=== PATIENT | female | born 1960 | race Caucasian/White ===

== ENCOUNTER 2022-06-12 08:42 | Day surgery (SDC) | payer BC ==
[~2022-06-12] VITALS: Ht 172.7 cm; Wt 113.1 kg
[~2022-06-12 08:42] MED LIST: FERROUS SULFAT324 M1 PO; FOLIC ACID0.4 MG PO; METOPROLOL25 MG PO; PORTIA-28 30 MC1 TAB PO; VESICARE5 MG PO; VITAMIN C BUFF500 MG PO
[2022-06-12] MEDS ORDERED: NORVASC 10MG10 MG PO (09:19)
[2022-06-12] MEDS ORDERED: JANUVIA 100MG100 MG PO (09:19)
[2022-06-12] MEDS ORDERED: ZOVIRAX800 MG PO (09:19)
[2022-06-12] MEDS ORDERED: HYGROTON 2525 MG/TAB PO (09:20)
[2022-06-12] MEDS ORDERED: BACTRIM DS 8001 TAB PO (09:20)
[2022-06-12] MEDS ORDERED: MAG-OX 400400 MG/TAB PO (09:21)
[2022-06-12] MEDS ORDERED: OCUVITE1 TA1 PO (09:21)
[2022-06-12] MEDS ORDERED: LOPRESSOR 550 MG/TAB PO (09:22)
[2022-06-12] MEDS ORDERED: OMEGA-31 SGL PO (09:22)
[2022-06-12] MEDS ORDERED: PRILOSEC 20MG20 MG PO (09:22)
[2022-06-12] MEDS ORDERED: VITAMIN D250 MCG PO (09:22)
[2022-06-12 09:23] VITALS: BP 130/90; PULSE 79; TEMP 98
[2022-06-12 09:39] LABS: BASO % 0.3 % (0.0-2.0); EOS % 0.6 % (0.0-4.0); GRAN # 1.7 K/mm3 (1.4-6.5); GRAN % 53.1 % (42.2-75.2); HEMATOCRIT 38.9 % (37.0-47.0); HEMOGLOBIN 13.7 g/dl (12.5-16.0); LYMPH # 0.9 K/mm3 (1.2-3.4); LYMPH % 28.1 % (20.0-51.0); MEAN CELL VOLUME 86 fl (80.0-100.0); MEAN CORPUSCULAR HEMOGLOBIN 30 pg (27-31); MEAN CORPUSCULAR HGB CONC 35 g/dl (33.0-37.0); MEAN PLATELET VOLUME 10.4 fl (7.4-10.4); MONO # 0.6 K/mm3 (0.1-0.6); PLATELET COUNT 124 K/mm3 (130-400); RED BLOOD COUNT 4.54 M/mm3 (4.10-5.30); REDCELL DISTRIBUTION WIDTH-CV 13.3 % (11.5-14.5)
[2022-06-12 10:48] VITALS: BP 121/72; PULSE 73; TEMP 98.2
--- NOTE | 2022-06-12 10:48 | NUR ---
PATIENT ARRIVED TO BAY 8 FOLLOWING PROCEDURE. PATIENT ALERT AND ORIENTED. NURSE HANDOFF COMPLETED IN ROOM. GAUZE AND BANDAID PRESENT TO LEFT BACKSIDE. DRESSING CLEAN, DRY AND INTACT. BREATHING REGULAR AND UNLABORED. PATIENT DENIES PAIN AND NAUSEA. SEE CHART FOR VITAL SIGNS. BLOOD SUGAR CHECK 226 AT 1052. PATIENT HAD SUGAR FREE PUDDING AND WATER. FOOD AND WATER TOLERATED WELL. PATIENT FRIEND DOMO PRESENT IN ROOM. CALL LIGHT IN REACH.
[2022-06-12 10:54] VITALS: BP 131/78; PULSE 68
[2022-06-12 11:00] VITALS: BP 131/79; PULSE 68
[2022-06-12 11:15] VITALS: BP 132/80; PULSE 70
[2022-06-12 11:30] VITALS: BP 131/80; PULSE 66
--- NOTE | 2022-06-12 11:30 | NUR ---
PATIENT AMBULATED TO RESTROOM WITH STEADY GAIT AND VOIDED WITHOUT DIFFICULTY. DISCHARGE TEACHING COMPLETED WITH PRINTED EDUCATION SENT HOME WITH PATIENT. PATIENT VERBALIZED UNDERSTANDING OF TEACHING. IV REMOVED. PATIENT DENIED PAIN AND NAUSEA. PATIENT DISCHARGED HOME WITH FRIEND, DOMO, TRANSPORT.
== END 2022-06-12 11:52 | disposition home or self-care (01) ==
LOC: SDCO 08:42
PROVIDERS: Pathology Anatomic Pathology & Clinical Pathology
DX: C83.16 Mantle cell lymphoma, intrapelvic lymph nodes (principal); E11.9 Type 2 diabetes mellitus without complications
CPT/HCPCS: J2704